=== PATIENT | female | born 1975 | race Caucasian/White ===

== ENCOUNTER 2019-08-08 19:46 | Observation (INO) | payer OTHER ==
--- NOTE | 2019-08-08 20:20 | PDOC ---
History of Present Illness - General Stated Complaint: HYPOTENSION Time Seen by Provider: 08/08/19 20:19 History Source: Patient Exam Limitations: No Limitations - History of Present Illness Initial Comments: 08/08/19 20:19 43yo F with PMH DM, obesity, presenting s/p syncopal event following a slip and fall on her L knee immediately NEGATIVE NOTCHER. Patient had a mechanical slip and fall on a slippery floor, no LOC or preceding symptoms, was in severe pain, went to the kitchen for ice, walked to another room to ice her knee where she sat down, then experienceds spots in her vision, felt dizzy, and slumped over. Family witnessed the event, no LOC, no head trauma, looked pale and spontaneously resolved. Called EMS, idgna found with SBP 76, BGM 126, given 1L NS pressure bag with resolution of BP. Now endorsing mild occipital headache and nausea. Patient adamantly denies CP, SOB, fevers, chills, recent illness, pain aside from her knee, history of cardiac disorders, young deaths or one car accidents in the family. NKDA Meds 4x DM medications PMH as above PSH denies Past History - Travel Traveled outside of the country in the last 30 days: No Close contact w/someone who was outside of country & ill: No - Past Medical History Allergies/Adverse Reactions: Allergies Allergy/AdvReac Type Severity Reaction Status Date / Time No Known Allergies Allergy Verified 08/08/19 20:56 Home Medications: Ambulatory Orders Empagliflozin [Jardiance] 25 mg PO DAILY 08/09/19 Glipizide 10 mg PO DAILY 08/09/19 Pioglitazone HCl 30 mg PO DAILY 08/09/19 Sitagliptin Phosphate [Januvia] 100 mg PO DAILY 08/09/19 Review of Systems - Review of Systems Able to Perform ROS?: Yes Is the patient limited Tajik proficient: Yes *Physical Exam - Physical Exam Comments: 08/08/19 20:46 Obese woman, NAD, resting in hospital bed MMM, EOMI, NCAT, trachea midline, PERRLA RRR, nl s1s2, no murmurs rubs or gallops appreciated CTABL, normal WOB, speaking full sentences, no cough, no wheezes / rales / rhonchi Obese, soft, nontender, nondistended 2+ radial and PT pulses WWP, no clubbing / cyanosis / edema Alert and oriented, CN 2-12 intact, normal sensation and strength throughout ED Treatment Course - LABORATORY CBC & Chemistry Diagram: 08/09/19 05:15 08/09/19 05:15 Medical Decision Making - Medical Decision Making 08/08/19 20:56 43yo F with PMH DM, obesity, presenting s/p syncopal event following a slip and fall on her L knee immediately NEGATIVE NOTCHER. History concerning for low SBP with EMS, soft pressure here in the ED. [place] Syncope Criteria SBP <90, will admit to observation for syncope. No cardiac history, DDX includes arrhythmias, hypovolemia, vaso vagal 2/2 pain. -CBC, CMP, CP, BNP, PT/INR -EKG, CXR, Monitor -IV Tylenol -Zofran after EKG 08/08/19 22:18 -CBC hemolyzed, redrawn and sent -IVF running, BP increased to 99 after pressure bag, now 1/3 of second 1L bag in -Zofran ordered -Patient requesting food, hasn't eaten since noon, will give sandwich once CT results -EKG 66bpm, NSR, normal axis, normal intervals, no concerning morphologies 08/08/19 23:01 -Slight leukocytosis 10.5 -Head CT without ICH -Gave patient a sandwich, IVF still running Dispo: Tele Obs for Syncope given low SPB 08/08/19 23:24 Orthostatics: 97/65 reclined in bed, 101/69 standing Patient without LH or dizziness during orthostatics testing 08/09/19 00:04 Sign out given to inpatient team Discharge - Discharge Information Problems reviewed: Yes Clinical Impression/Diagnosis: Syncope and collapse Condition: Improved Disposition: HOME - Follow up/Referral - Patient Discharge Instructions - Post Discharge Activity
[2019-08-08] MEDS ORDERED: ACETAMINOPHEN 1000 MG/100 ML VIAL (NON FORMULARY) IVPB ONE (20:40)
[2019-08-08 21:50] LABS: ALBUMIN 3.3 g/dl (3.4-5.0); ALK PHOS 106 U/L (45-117); ANION GAP 8 MMOL/L (8-16); BILIRUBIN,TOTAL 0.2 mg/dL (0.2-1); BLOOD UREA NITROGEN 15.8 mg/dL (7-18); CALCIUM 8.5 mg/dL (8.5-10.1); CHLORIDE 106 mmol/L (98-107); CO2 24 mmol/L (21-32); GLUCOSE,RANDOM 145 mg/dL (74-106); POTASSIUM 3.8 mmol/L (3.5-5.1); SGOT/AST 12 U/L (15-37); SGPT/ALT 20 U/L (13-61); SODIUM 138 mmol/L (136-145); TOT PROT 7.2 g/dl (6.4-8.2)
[2019-08-08] MEDS ORDERED: ONDANSETRON 4 MG/2 ML VIAL IVPUSH ONE (22:17)
[2019-08-08] MEDS ORDERED: SODIUM CHLORIDE 0.9% 500 ML INFUS.BAG IV ONE (22:34)
[2019-08-08 22:44] LABS: BASO % 0.5 % (0-2.0); EOS % 1.1 % (0-4.5); HEMATOCRIT 36.4 % (32.4-45.2); LYMPH % 19.6 % (8-40); MCH 27.9 pg (25.7-33.7); MCHC 32.9 g/dl (32.0-36.0); MEAN CELL VOLUME 85.1 fl (80-96); MEAN PLT VOLUME 8.7 fl (7.5-11.1); MONO % 5.3 % (3.8-10.2); NEUT % 73.5 % (42.8-82.8); PLATELET COUNT 232 K/MM3 (134-434); RBC 4.28 M/mm3 (3.60-5.2); RDW 14.3 % (11.6-15.6); WHITE BLOOD COUNT 10.7 K/mm3 (4.0-10.0)
--- NOTE | 2019-08-08 22:45 | PDOC ---
Documentation entered by Raf Melendez SCRIBE, acting as scribe for Mahsa Jimenez MD. Mahsa Jimenez MD: This documentation has been prepared by the Al lyons Xhesika, SCRIBE, under my direction and personally reviewed by me in its entirety. I confirm that the documentation accurately reflects all work, treatment, procedures, and medical decision making performed by me. Attending Attestation - Resident Resident Name: BennieJonel - ED Attending Attestation I have performed the following: I have examined & evaluated the patient, The case was reviewed & discussed with the resident, I agree w/resident's findings & plan, Exceptions are as noted - HPI HPI: 08/08/19 20:41 The patient is a 43 year old female with a significant PMH of DM (compliant with medication) who presents to the emergency department BIBA s/p mechanical fall. Patient notes she was at home, slipped on the floor, landed on her L knee. She got up to ice her knee, went to sit down and slumped over. Patient denies hitting head or LOC Subsequent to falling, she was able to ambulate, she went up 2 flights of stairs She sat down, noted that she felt nauseous and started seeing dots. She awoke when a family member was poking her. Per partner bedside, she was "out" for 2 to 3 minutes. She was sweating, had white lips, and then woke up. No prior episodes of syncope. No prior OK. Patient states she had absolutely no preceding chest pain, shortness breath, palpitations prior to falling. Patient was not noted to have seizure-like activity. She reports that once EMS arrived her home, and she was given IV fluids she gradually began to feel much better. No recent illness. Patient did eat earlier today Denies fever, chills, cough, nausea, vomiting, diarrhea and constipation. Allergies: NKDA 08/08/19 22:33 - Physicial Exam PE: 08/08/19 20:42 GENERAL: The patient is in no acute distress. HEAD: Normal with no signs of trauma. EYES: PERRLA, EOMI ENT: Moist mucous membranes. NECK: Normal range of motion, supple LUNGS: Breath sounds equal, clear to auscultation bilaterally. No wheezes, and no crackles. HEART: Regular rate and rhythm, normal S1 and S2 without murmur, rub or gallop. ABDOMEN: Soft, nontender EXTREMITIES: Normal range of motion, no edema. No clubbing or cyanosis. No erythema, or tenderness. NEUROLOGICAL: Cranial nerves II through XII grossly intact. Normal speech. No focal neurological deficits. MUSCULOSKELETAL: Left knee is tender to palpation, pt able to range knee with pain SKIN: No lacerations or bruising 08/08/19 22:39 - Medical Decision Making 08/08/19 22:42 S/p syncopal episode s/p falling Pt syncope likely related to vasovagal episode s/p severe knee pain Possibly arrhythmia, ACS Unlikely PE - no chest pain, no hypoxia, no tachycardia Will do: Labs EKG IVF close monitoring of pt BP (remains 99/41) Will do CT Will re assess Anticipate admission
[2019-08-08] MEDS ORDERED: ONDANSETRON 4 MG/2 ML VIAL ONE (23:02)
--- NOTE | 2019-08-08 23:52 | PN ---
Teaching Attending Note Name of Resident: Amanda Todd ATTENDING PHYSICIAN STATEMENT I saw and evaluated the patient. I reviewed the resident's note and discussed the case with the resident. I agree with the resident's findings and plan as documented. SUBJECTIVE: 43-year-old woman with a past medical history of obesity diabetes mellitus, presented status post syncopal event following a slip and fall on her left knee just prior to arrival to hospital. Patient reported that she sat in a chair after her fall and subsequently lost consciousness. Lasted several seconds and then resolved. Denies prior syncope episodes denies palpitations or loss of bladder or bowel control. OBJECTIVE: Last Vital Signs Temp Pulse Resp BP Pulse Ox 98.2 F 80 18 99/41 L 99 08/08/19 19:55 08/08/19 19:55 08/08/19 19:55 08/08/19 19:55 08/08/19 19:55 GENERAL: Morbidly obese HEENT: Normocephalic, atraumatic. PERRLA, EOMI. No conjunctival pallor. Sclera are non- icteric. Moist mucous membranes. Oropharynx is clear. NECK: Supple. Full ROM. No JVD. Carotid pulses 2+ and symmetric, without bruits. No thyromegaly. No lymphadenopathy. CARDIOVASCULAR: Regular rate and rhythm. No murmurs, rubs, or gallops. Distal pulses are 2+ and symmetric. PULMONARY: No evidence of respiratory distress. Lungs clear to auscultation bilaterally. No wheezing, rales or rhonchi. ABDOMINAL: Soft. Non-tender. Non-distended. No rebound or guarding. No organomegaly. Normoactive bowel sounds. MUSCULOSKELETAL Normal range of motion at all joints. No bony deformities or tenderness. No CVA tenderness. EXTREMITIES: Left knee no deformities and no tenderness. No ecchymosis observed. SKIN: Warm and dry. Normal capillary refill. No rashes. No jaundice. PSYCHIATRIC: Cooperative. Good eye contact. Appropriate mood and affect. Abnormal Lab Results 08/08/19 08/08/19 21:05 22:40 WBC 10.7 H Random Glucose 145 H AST 12 L Albumin 3.3 L Imaging studies reviewed EKG reviewed normal sinus rhythm no arrhythmias observed ASSESSMENT AND PLAN: 43-year-old woman with syncopal episode. May have been vasovagal or orthostatic in nature. Telemetry observation Check orthostatics Bedrest Echo to rule out aortic stenosis Follow-up left knee x-ray DVT prophylaxis with heparin subcu
[2019-08-09] MEDS ORDERED: SODIUM CHLORIDE 1,000 ML IV SCH (01:15)
--- NOTE | 2019-08-09 02:29 | HP ---
CHIEF COMPLAINT: L knee pain and syncopal episode PCP: Dr. Carlson HISTORY OF PRESENT ILLNESS: The patient is a 43 year old female with a significant PMH of DM (compliant with medication) who presents to the emergency department BIBA s/p mechanical fall and syncopal episode. Patient notes she was at her sisters house, slipped on the floor, landed on her L knee. She states she used the bathroom and was feeling fine, she went to sit down in a chair afterwards when she "slumped over " and lost consciousness for 2-3 minutes. She stated her vision blacked out and she was seeing dots. She also reported that she had some nausea but did not vomit. The patient states that her fall earlier in the evening was purely mechanical and states that while she does have LLE pain, she is able to ambulate and put weight on the leg. Patient denies any previous syncopal episodes, CP, SOB, or palpiations prior to falling or prior to her syncopal episode. Patient reported she felt really thirsty and dehydrated and that once she was given IVF she felt better. Per ED report, when EMS found the patient she had a SBP 76, BGM 126. . ER course was notable for: (1) normal EKG (2) negative orthostatic vitals (97/65 laying down, 101/69 standing up) (3) negative troponin Recent Travel: denies PAST MEDICAL HISTORY: DM and obesity PAST SURGICAL HISTORY: tubal ligation, surgery for a "heel spur" Social History: Smoking: quit 2 years ago, previous 1ppd smoker for ~20y Alcohol: denies Drugs: denies Allergies No Known Allergies Allergy (Verified 08/08/19 20:56) HOME MEDICATIONS: reports she takes glipizide and januvia Home Medications Medication Instructions Recorded Unobtainable 08/09/19 REVIEW OF SYSTEMS CONSTITUTIONAL: Absent: fever, chills, diaphoresis, generalized weakness, malaise, loss of appetite, weight change HEENT: Absent: rhinorrhea, nasal congestion, throat pain, throat swelling, difficulty swallowing, mouth swelling, ear pain, eye pain, visual changes CARDIOVASCULAR: lightheadedness, syncope Absent: chest pain, , palpitations, irregular heart rate, peripheral edema RESPIRATORY: Absent: cough, shortness of breath, dyspnea with exertion, orthopnea, wheezing, stridor, hemoptysis GASTROINTESTINAL: abdominal pain> attributes to her period Absent: abdominal distension, nausea, vomiting, diarrhea, constipation, melena , hematochezia GENITOURINARY: Absent: dysuria, frequency, urgency, hesitancy, hematuria, flank pain, genital pain MUSCULOSKELETAL: Absent: myalgia, arthralgia, joint swelling, back pain, neck pain SKIN: Absent: rash, itching, pallor HEMATOLOGIC/IMMUNOLOGIC: Absent: easy bleeding, easy bruising, lymphadenopathy, frequent infections ENDOCRINE: Absent: unexplained weight gain, unexplained weight loss, heat intolerance, cold intolerance NEUROLOGIC: dizziness, Absent: headache, focal weakness or paresthesias, unsteady gait, seizure, mental status changes, bladder or bowel incontinence PSYCHIATRIC: Absent: anxiety, depression, suicidal or homicidal ideation, hallucinations. PHYSICAL EXAMINATION Vital Signs - 24 hr 08/08/19 08/09/19 08/09/19 19:55 01:59 02:00 Temperature 98.2 F Pulse Rate 80 Pulse Rate [ 69 Radial] Respiratory 18 20 Rate Blood Pressure 99/41 L Blood Pressure 117/71 [Left Arm] O2 Sat by Pulse 99 98 97 Oximetry (%) GENERAL: Sleepy, agitated, fully oriented, in no acute distress, uncooperative with much of the physical exam. HEAD: Normal with no signs of trauma. EYES: Pupils equal, round and reactive to light, extraocular movements intact, sclera anicteric, conjunctiva clear. No lid lag. EARS, NOSE, THROAT: Ears normal, nares patent, oropharynx clear without exudates. Moist mucous membranes. NECK: Normal range of motion, supple without lymphadenopathy, JVD, or masses. LUNGS: Breath sounds equal, clear to auscultation bilaterally. No wheezes, and no crackles. No accessory muscle use. HEART: Regular rate and rhythm, normal S1 and S2 without murmur. ABDOMEN: Soft, obese, tender to palpation in suprapubic area, not distended, normoactive bowel sounds, no guarding, no rebound, no masses. MUSCULOSKELETAL: Normal range of motion at all joints. No bony deformities or tenderness. No CVA tenderness. UPPER EXTREMITIES: 2+ pulses, warm, well-perfused. No cyanosis. No clubbing. No peripheral edema. 5/5 strength, sensation intact bilaterally, DTR symmetric LOWER EXTREMITIES: 2+ pulses, warm, well-perfused. No peripheral edema. L lower leg diffusely tender to palpation but worst near knee no ecchymosis noted, no tenderness on RLE. NEUROLOGICAL: unable to assess as patient would not cooperate with exam. Gait antalgic with limp. SKIN: Warm, dry, normal turgor, no rashes or lesions noted, normal capillary refill. Laboratory Results - last 24 hr 08/08/19 08/08/19 08/08/19 21:05 21:05 22:40 WBC Cancelled 10.7 H Corrected WBC (auto) Cancelled RBC Cancelled 4.28 Hgb Cancelled 12.0 Hct Cancelled 36.4 MCV Cancelled 85.1 MCH Cancelled 27.9 MCHC Cancelled 32.9 RDW Cancelled 14.3 Plt Count Cancelled 232 MPV Cancelled 8.7 Absolute Neuts (auto) Cancelled 7.9 Neutrophils % Cancelled 73.5 Lymphocytes % Cancelled 19.6 Monocytes % Cancelled 5.3 Eosinophils % Cancelled 1.1 Basophils % Cancelled 0.5 Nucleated RBC % Cancelled 0 Platelet Estimate Cancelled Platelet Comment Cancelled Sodium 138 Potassium 3.8 Chloride 106 Carbon Dioxide 24 Anion Gap 8 BUN 15.8 Creatinine 1.0 Est GFR (CKD-EPI)AfAm 79.35 Est GFR (CKD-EPI)NonAf 68.46 Random Glucose 145 H Calcium 8.5 Total Bilirubin 0.2 AST 12 L ALT 20 Alkaline Phosphatase 106 Creatine Kinase 94 Troponin I < 0.02 B-Natriuretic Peptide 30.0 Total Protein 7.2 Albumin 3.3 L Imaging studies reviewed EKG reviewed normal sinus rhythm no arrhythmias observed ASSESSMENT/PLAN: The patient is a 43 year old female with a significant PMH of DM (compliant with medication) who presents to the emergency department BIBA s/p mechanical fall and syncopal episode. # Syncope- may be 2/2 orthostasis given her initial low SBP (76) or may be vasovagal 2/2 knee pain from her fall (per patient it's 04/17) - tele obs - F/u orthostatic vitals in AM - bedrest - f/u echo to rule out aortic stenosis # Mechanical fall with L knee xray - F/u knee x-ray # DM - holding home meds - BGM ACHS - ISS #[email or web address]/h repete PRN diabetic diet #PPx DVT prophylaxis with heparin SQ # Dispo- admit to tele obs Visit type - Emergency Visit Emergency Visit: Yes ED Registration Date: 08/09/19 Care time: The patient presented to the Emergency Department on the above date and was hospitalized for further evaluation of their emergent condition. - New Patient This patient is new to me today: Yes Date on this admission: 08/09/19 - Critical Care Critical Care patient: No ATTENDING PHYSICIAN STATEMENT I saw and evaluated the patient. I reviewed the resident's note and discussed the case with the resident. I agree with the resident's findings and plan as documented. SUBJECTIVE: OBJECTIVE: ASSESSMENT AND PLAN:
[2019-08-09 03:01] LABS: EPI CELLS 3.7 /HPF (0-5/HPF); HYALINE CASTS 0 /lpf (0-8); PH,URINE 6.5 (5.0-8.0); URINE APPEARANCE CLEAR; URINE BACTERIA 39.9 /hpf (NEGATIVE); URINE BILIRUBIN NEGATIVE (NEGATIVE); URINE COLOR YELLOW; URINE GLUCOSE (UA) 3+ (NEGATIVE); URINE KETONE NEGATIVE (NEGATIVE); URINE LEUK ESTERASE NEGATIVE (NEGATIVE); URINE NITRITE NEGATIVE (NEGATIVE); URINE PROTEIN NEGATIVE (NEGATIVE); URINE RBC 4 /hpf (0-4); URINE UROBILINOGEN 0.2 mg/dL (0.2-1.0); URINE WBC 1 /hpf (0-5)
[2019-08-09 03:42] VITALS: BMI 47.4
[2019-08-09] MEDS: INSULIN SLIDING SCALE (NOVOLOG) 1 VIAL SQ SCH ×2 (06:59→11:40)
[2019-08-09] MEDS: HEPARIN NA (PORCINE) 5,000 UNITS/ML 1ML VIAL SQ SCH ×2 (06:59→13:18)
[2019-08-09 08:06] LABS: BASO % 0.5 % (0-2.0); EOS % 2.6 % (0-4.5); HEMATOCRIT 35.9 % (32.4-45.2); HEMOGLOBIN 12.1 GM/dL (10.7-15.3); LYMPH % 31.1 % (8-40); MCHC 33.8 g/dl (32.0-36.0); MEAN CELL VOLUME 85.7 fl (80-96); MEAN PLT VOLUME 9.2 fl (7.5-11.1); MONO % 6.9 % (3.8-10.2); NEUT % 58.9 % (42.8-82.8); PLATELET COUNT 238 K/MM3 (134-434); RBC 4.18 M/mm3 (3.60-5.2); RDW 14.4 % (11.6-15.6)
[2019-08-09 08:38] LABS: ALBUMIN 2.8 g/dl (3.4-5.0); ALK PHOS 87 U/L (45-117); ANION GAP 6 MMOL/L (8-16); BILIRUBIN,TOTAL 0.3 mg/dL (0.2-1); BLOOD UREA NITROGEN 11.2 mg/dL (7-18); CALCIUM 7.8 mg/dL (8.5-10.1); CHLORIDE 112 mmol/L (98-107); CO2 24 mmol/L (21-32); CREATININE 0.7 mg/dL (0.55-1.3); GLUCOSE,RANDOM 87 mg/dL (74-106); MAGNESIUM 1.9 mg/dL (1.8-2.4); PHOSPHOROUS 3.8 mg/dL (2.5-4.9); POTASSIUM 4.4 mmol/L (3.5-5.1); SGOT/AST 9 U/L (15-37); SGPT/ALT 18 U/L (13-61); SODIUM 142 mmol/L (136-145); TOT PROT 6.2 g/dl (6.4-8.2)
--- NOTE | 2019-08-09 11:18 | ECHO ---
Name: TORRES ALLAN Exam:Adult Echocardiogram Study Date: 08/09/2019 09:48 AM Age: 43 yrs Reason For Study: EVALUATE LV FUNCTION Height: 69 in Weight: 300 lb BSA: 2.5 m2 MMode/2D Measurements & Calculations IVSd: 0.92 cm Ao root diam: 2.9 cm LVIDd: 4.9 cm LA dimension: 3.6 cm LVIDs: 3.3 cm LVPWd: 1.1 cm LVPWs: 1.3 cm EDV(Teich): 114.2 ml ESV(Teich): 42.9 ml Doppler Measurements & Calculations MV E max ronald: 88.4 cm/sec Ao V2 max: 125.1 cm/sec MV A max ronald: 71.1 cm/sec Ao max P.3 mmHg MV E/A: 1.2 MV dec time: 0.24 sec LV V1 max P.3 mmHg TR max ronald: 215.8 cm/sec LV V1 max: 103.2 cm/sec TR max P.6 mmHg PA V2 max: 92.3 cm/sec Med Peak E' Ronald: 10.4 cm/sec PA max P.4 mmHg Med E/e': 8.5 Lat Peak E' Ronald: 13.5 cm/sec Lat E/e': 6.6 Procedure The study was technically difficult with many images being suboptimal in quality. Left Ventricle Left ventricular systolic function is grossly normal. Ejection Fraction = 50-55%. Left Ventricular Fi lling pattern is normal for age. Regional wall motion abnormalities cannot be excluded due to limited visua lization. Right Ventricle The right ventricle is grossly normal size. The right ventricular systolic function is grossly normal . Atria Normal left and right atrial size and function. Mitral Valve The mitral valve is normal in structure and function. There is no mitral valve stenosis. There is tra ce to mild mitral regurgitation. Tricuspid Valve The tricuspid valve is normal in structure and function. There is Trace to mild tricuspid regurgitati on. Aortic Valve The aortic valve is not well visualized. The aortic valve opens well. No hemodynamically significant valvular aortic stenosis. No aortic regurgitation is present. Pulmonic Valve The pulmonic valve is not well seen, but is grossly normal. There is no pulmonic valvular stenosis. Great Vessels The aortic root is normal size. Pericardium/Pleura There is no pericardial effusion. Interpretation Summary The study was technically difficult with many images being suboptimal in quality. Regional wall motion abnormalities cannot be excluded due to limited visualization. Left ventricular systolic function is grossly normal. Ejection Fraction = 50-55%. There is trace to mild mitral regurgitation. There is Trace to mild tricuspid regurgitation. The aortic valve is not well visualized. The aortic valve opens well. There is no pericardial effusion. MD Owusu *Humphrey 08/09/2019 11:17 AM
[2019-08-09] MEDS ORDERED: ACETAMINOPHEN 325 MG TABLET (FP) PO PRN (11:51)
[2019-08-09 14:24] VITALS: BP 116/55; PULSE 70; TEMP 98.3
--- NOTE | 2019-08-09 14:29 | PN ---
Teaching Attending Note Name of Resident: Jennifer Harry ATTENDING PHYSICIAN STATEMENT I saw and evaluated the patient. I reviewed the resident's note and discussed the case with the resident. I agree with the resident's findings and plan as documented. SUBJECTIVE: No fever or chills. No WADE . minimal L knee pain. No cp . denies palpitations before episode. OBJECTIVE: NAD, awake, alert, oriented. CV: RRR, no MRG Lungs: CTAB Abd: obese, soft, NT, ND, NL BS Ext: no edema or erythema. L knee tenderness over patella, and painin popliteal area. no calf tenderness. ASSESSMENT AND PLAN: 43 y/o lady with h/o obesity who presented with syncopal episode. Syncope could be due vasovagal event after urination vs hypotension as she was hypotensive at presentation . has her period, might be contributing. questionable volume depletion . tele with no events echo and US nl. received IVF will need cardiac monitoring as out pt . she was referred to card she is aware. she was advised not drive or climb ladders until seen by PCP and card and cleared. at bed side dc home
--- NOTE | 2019-08-09 14:31 | EKG ---
Test Reason : Blood Pressure : / mmHG Vent. Rate : 066 BPM Atrial Rate : 066 BPM P-R Int : 158 ms QRS Dur : 086 ms QT Int : 408 ms P-R-T Axes : 022 020 027 degrees QTc Int : 427 ms NORMAL SINUS RHYTHM NO PREVIOUS ECGS AVAILABLE Confirmed by DEANNA MICHELE MD ([id number]) on 08/09/2019 2:30:51 PM Referred By: Confirmed By:DEANNA MICHELE MD
--- NOTE | 2019-08-09 18:29 | DS ---
Physical Exam: SUBJECTIVE: Patient seen and examined in the morning. No acute events overnight. Denies shortness of breath, headache, chest pain, fever, chills, cough. OBJECTIVE: Vital Signs Period Temp Pulse Resp BP Sys/[place] Pulse Ox Last 24 Hr 98.2 F-99.0 F 69-80 16-20 94-128/41-81 97-99 PHYSICAL EXAM GENERAL: The patient is awake, alert, and fully oriented, in no acute distress. HEAD: Normal with no signs of trauma. EYES: PERRL, extraocular movements intact, sclera anicteric, conjunctiva clear. ENT: Ears normal, nares patent, oropharynx clear without exudates, moist mucous membranes. NECK: Trachea midline, full range of motion, supple. LUNGS: Breath sounds equal, clear to auscultation bilaterally, no wheezes, no crackles, no accessory muscle use. HEART: Regular rate and rhythm, S1, S2 without murmur, rub or gallop. ABDOMEN: Soft, tender in the left lower quadrant, nondistended, normoactive bowel sounds, no guarding, no rebound, no hepatosplenomegaly, no masses. EXTREMITIES: 2+ pulses, warm, well-perfused, no edema. Left calf tender to touch NEUROLOGICAL: Cranial nerves II through XII grossly intact. Normal speech, gait not observed. PSYCH: Normal mood, normal affect. SKIN: Warm, dry, normal turgor, no rashes or lesions noted. LABS Laboratory Results - last 24 hr CBC, BMP 08/09/19 05:15 08/09/19 05:15 HOSPITAL COURSE: Date of Admission:08/09/19 Date of Discharge: 08/09/19 43F with PMH of Diabetes who was admitted due to syncopal episode and lows systolic blood pressure. Patient was given fluids. Echocardiogram, carotid doppler, and telemetry monitoring did not show any cause for syncopal episode, and patient was ruled stable for discharge and will follow up for telemetry monitoring as outpatient. Imaging done this visit: Head CT: No evidence of acute intracranial pathology Chest X-ray: No acute chest pathology Carotid Doppler: Minimal intimal thickening at left common carotid bifurcation without evidence of hemodynamically significant stenosis, bilaterally. Echo: EF of 50-55%. Trace to mild MR. Trace to mild TR. Minutes to complete discharge: 35 Discharge Summary Problems reviewed: Yes Reason For Visit: SYNCOPE AND COLLAPSE Condition: Improved - Instructions Diet, Activity, Other Instructions: You were admitted to the hospital because you passed out. While you were here we did imaging of your heart, neck, and left leg. You are stable to go home. Please continue all your medications as prescribed. Follow up with your primary care physician within one week. Return to the Emergency Department if you have any nausea, vomiting, headache, shortness of breath, or change in vision. follow up with Dr. Arango, technology services manager fro a holter monitor or a prolonged monitor for your heart Referrals: Benito Arango MD [Staff Physician] - 1 Week Disposition: HOME - Home Medications Comprehensive Discharge Medication List: Ambulatory Orders Empagliflozin [Jardiance] 25 mg PO DAILY 08/09/19 Glipizide 10 mg PO DAILY 08/09/19 Pioglitazone HCl 30 mg PO DAILY 08/09/19 Sitagliptin Phosphate [Januvia] 100 mg PO DAILY 08/09/19 This patient is new to me today: Yes Date on this admission: 08/09/19 Emergency Visit: Yes ED Registration Date: 08/09/19 Care time: The patient presented to the Emergency Department on the above date and was hospitalized for further evaluation of their emergent condition. Critical Care patient: No - Discharge Referral Referred to [facility] No ATTENDING PHYSICIAN STATEMENT I saw and evaluated the patient. I reviewed the resident's note and discussed the case with the resident. I agree with the resident's findings and plan as documented. SUBJECTIVE: OBJECTIVE: ASSESSMENT AND PLAN:
== END 2019-08-09 15:47 | disposition home or self-care (01) ==
LOC: JER 19:46 → UNDOADMOB 22:27 → INTOOBSV 22:27 → JERBED 22:27 → J4S 08-09 02:57
PROVIDERS: ADMIT Internal Medicine; ATTEND Internal Medicine
PROC: 3E033NZ Introduction of Analgesics, Hypnotics, Sedatives into Peripheral Vein, Percutaneous Approach (ICD-10-PCS; principal; 2019-08-09)
PROC: 3E0337Z Introduction of Electrolytic and Water Balance Substance into Peripheral Vein, Percutaneous Approach (ICD-10-PCS; 2019-08-09)
PROC: 3E033GC Introduction of Other Therapeutic Substance into Peripheral Vein, Percutaneous Approach (ICD-10-PCS; 2019-08-09)
DX: R55 Syncope and collapse (principal); E11.9 Type 2 diabetes mellitus without complications; E66.9 Obesity, unspecified; Z68.42 Body mass index [BMI] 45.0-49.9, adult; Z79.84 Long term (current) use of oral hypoglycemic drugs; W01.0XXA Fall on same level from slipping, tripping and stumbling without subsequent striking against object, initial encounter; Y93.89 Activity, other specified; Y92.008 Other place in unspecified non-institutional (private) residence as the place of occurrence of the external cause
CPT/HCPCS: 36415; 70450-TC; 71045-TC-FY; 73560-TC-LT-FY; 80053; 81003; 82550; 82962; 83735; 83880; 84100; 84484; 84703; 85025; 93005; 93010; 93306-TC; 93880-TC; 93971-TC; 99285-25; G0378; J0131; J7030